=== PATIENT | male | born 1995 | race Caucasian/White ===

== ENCOUNTER 2016-07-29 22:51 | Emergency (ER) | payer MEDICAID ==
--- NOTE | 2016-07-29 22:58 | ED Physician Chart ---
Chief Complaint/HPI - Patient Information Date Seen:: 07/29/16 Time Seen:: 22:55 Chief Complaint:: laceration History of Present Illness:: 20-year-old male, otherwise healthy, complains of acute, moderate, laceration to left wrist that happened at 5 PM yesterday on sharp edge of metal. Had some associated bleeding which is now resolved. Says last tetanus was when he was a child. Historian:: Patient Review:: Nurse's Note Reviewed Review of Systems - Review of Systems Other: Complete system review otherwise unremarkable except as noted in history of present illness. Past Medical History - Past Medical History Past Medical History: No significant medical hx Family History: None Social History: Non Smoker, No Alcohol, No Drug Use, Lives With Parents Surgical History: None Psychiatricy History: None Medication: None Family Medical History - Family Member Mother Ethnicity: Hx Family Cancer: No Hx Family Coronary Artery Disease: No Hx Family Congestive Heart Failure: No Hx Family Hypertension: No Hx Family Stroke: No Physical Exam - Physical Examination Other:: INITIAL VITAL SIGNS: Reviewed by me GENERAL: Alert and interactive. No acute distress HEAD: Head is normocephalic and atraumatic EYES: EOMI. PERRL. No scleral icterus. No conjunctival injection ENT: Moist mucous membranes. NECK: Supple. No masses. Full range of motion RESPIRATORY: No tachypnea. Clear breath sounds bilaterally. No wheezing, rales, or rhonchi CV: Regular rate and rhythm. No murmurs, rubs, or gallops ABDOMEN: Soft, non-distended, non-tender. No guarding. No rebound. No masses. EXTREMITIES: Left wrist lateral aspect with 2 cm superficial laceration. No bleeding. SKIN: Warm and dry. No obvious rashes. NEUROLOGIC: Alert and oriented. Face is symmetric. Speech is normal. Moves all extremities equally. Motor and sensory distally intact. Assessment - Procedures Procedures:: Laceration Repair Laceration Repair by me: Anesthesia: None Location: Left wrist Tendon/Joint/Nerves: No injury Foreign body: None detected after copious irrigation and exploration Technique: Steri-Strip Complexity: No subcutaneous sutures/mucosal repair/edge excision Post Closure Length: 2 cm No evidence of compartment syndrome, neurologic injury, vascular injury, open joint, tendon laceration, or foreign body. Patient is appropriate for outpatient follow up. 48 hour wound check. Scar minimization instructions given. Informed Consent: Procedure/risk/benefits explained by MD: Yes ED Septic Shock - . Is Septic Shock (SBP<90, OR Lactate>4 mmol\L) present?: No Reassessment (Disposition) - Reassessment Reassessment:: Patient has small 2 cm, superficial laceration to left wrist. Repaired with Steri-Strip. Updated tetanus. Follow-up PCP for wound check 2-3 days. Return to ER precautions given. Patient understands and agrees with the plan. Reassessment Condition:: Improved - Diagnosis Diagnosis:: Acute laceration to left wrist, 2 cm, first visit - Aftercare/Follow up Instructions Aftercare/Follow-Up Instructions:: Counseled pt regarding lab results/diagnosis & need follow up, Refer to Discharge Instructions - Patient Disposition Discharge/Transfer:: Home Time:: 23:12 Condition at Disposition:: Improved ED Discharge Plan - Patient Disposition Admit/Discharge/Transfer: PT DISCHARGED HOME Condition at Disposition: Improved Instructions: Skin Adhesive Strip Removal
[2016-07-29 23:35] VITALS: BP 119/79
== END 2016-07-29 23:20 | disposition home or self-care (01) ==
LOC: ER 22:51
DX: S61.512A Laceration without foreign body of left wrist, initial encounter (principal); X58.XXXA Exposure to other specified factors, initial encounter; Y93.89 Activity, other specified; Y92.89 Other specified places as the place of occurrence of the external cause; Y99.8 Other external cause status
CPT/HCPCS: Z7502